=== PATIENT | male | born 1990 | race Caucasian/White ===

== ENCOUNTER 2023-05-31 07:35 | Emergency (ER) | payer OTHER ==
[~2023-05-31] VITALS: Ht 180.3 cm; Wt 93.0 kg
[~2023-05-31 07:35] MED LIST: CEPHALEXIN500 M1 PO
[2023-05-31] MEDS ORDERED: NORVASC5 MG PO (07:56)
[2023-05-31 08:18] LABS: BASO # 0.1 10*3/uL (0.0-0.1); BASO % 0.5 % (0.0-1.0); EOS # 0.3 10*3/uL (0.0-0.4); EOS % 2.9 % (1.0-4.0); HEMATOCRIT 44.6 % (42.0-52.0); LYMPH % 9.6 % (27.0-41.0); MEAN CORPUSCULAR HGB 29.9 pg (27.0-31.0); MEAN CORPUSCULAR HGB CONC 35.2 g/dl (33.0-37.0); MEAN PLATELET VOLUME 9.7 fl (9.6-12.3); MONO # 1.2 10*3/uL (0.1-1.0); NEUT % 75.7 % (47.0-73.0); PLATELET COUNT AUTOMATED 189 10*3/uL (130-400); RED BLOOD COUNT 5.25 10*6/uL (4.50-5.90); RED CELL DISTRI WIDTH 12.4 % (0-14.5); WHITE BLOOD COUNT 10.5 10*3/uL (4.8-10.8)
[2023-05-31 08:27] LABS: BILIRUBIN Negative (Negative); BLOOD 2+ (Negative); CLARITY Cloudy (Clear); COLOR Dark Yellow (Yellow); GLUCOSE Negative (Negative); KETONE Trace (Negative); LEUKO ESTERASE Negative (Negative); NITRITE Negative (Negative); PH 5.5 (4.5-8.0); SPECIFIC GRAVITY >= 1.030 (1.001-1.030)
[2023-05-31 08:39] LABS: ALKALINE PHOSPHATASE 63 U/L (46-116); BUN 12 mg/dl (9-23); CHLORIDE 105 mmol/L (98-107); POTASSIUM 3.5 mmol/L (3.4-5.1); SGPT/ALT 47 U/L (5-49); TOTAL PROTEIN 7.6 gm/dL (6.0-8.0)
[2023-05-31 08:44] LABS: BACTERIA 3+; RBC 16-20 rbc/hpf (0-2)
[2023-05-31 08:45] LABS: MUCOUS 3+
[2023-05-31] MEDS ORDERED: LEVOFLOXACIN750 M2 PO (09:32)
== END 2023-05-31 09:39 | disposition home or self-care (01) ==
LOC: ED 07:35
PROVIDERS: Emergency Medicine
DX: R50.9 Fever, unspecified (principal); M79.10 Myalgia, unspecified site; J18.9 Pneumonia, unspecified organism; I10 Essential (primary) hypertension; Z90.89 Acquired absence of other organs; Z20.822 Contact with and (suspected) exposure to COVID-19